=== PATIENT | female | born 1930 | race Caucasian/White ===

== ENCOUNTER 2022-02-03 09:00 | Emergency (ER) | payer MEDICARE, OTHER | END 2022-02-03 13:30 | disposition home or self-care (01) | LOC: CC.ED 09:00 | DX: S51.012A Laceration without foreign body of left elbow, initial encounter (principal); S70.02XA Contusion of left hip, initial encounter; S70.12XA Contusion of left thigh, initial encounter; Z88.1 Allergy status to other antibiotic agents; Z88.8 Allergy status to other drugs, medicaments and biological substances; W06.XXXA Fall from bed, initial encounter | CPT/HCPCS: 12002; 72192; 99283; 99284-25 ==

== ENCOUNTER 2022-06-22 02:38 | Inpatient (IN) | payer MEDICARE, OTHER ==
[2022-06-22] MEDS ORDERED: Albuterol/Ipratropium 3.0-0.5 MG/3 ML Neb Soln NEB ONE (03:05)
[2022-06-22] MEDS ORDERED: Sodium Chloride 0.9% 10 ML Syringe FLUSH PRN (03:31)
[2022-06-22 03:33] LABS: CHLORIDE,CL 104 mEq/L (98-106); SODIUM,NA 144 mEq/L (136-145)
[2022-06-22 03:35] LABS: ESTIMATED GFR 25 mL/min (>=60)
[2022-06-22] MEDS ORDERED: Acetaminophen 325 MG Tab PO PRN (04:59)
[2022-06-22] MEDS ORDERED: Ondansetron 4 MG/2 ML SDV IV PRN (04:59)
[2022-06-22] MEDS ORDERED: Ondansetron 4 MG Tab.DIS PO PRN (04:59)
[2022-06-22] MEDS ORDERED: Furosemide 40 MG/4 ML VIAL IVPUSH SCH (05:00)
[2022-06-22] MEDS: Sodium Chloride 0.9% 1,000 ML IV SCH ×2 (05:02→17:27)
[2022-06-22] MEDS: Levothyroxine 150 MCG Tab PO SCH (06:16)
[2022-06-22] MEDS: Pantoprazole 40 MG Tab.CR PO SCH (06:16)
[2022-06-22] MEDS ORDERED: Non-Formulary Medication 1 Each (Omeprazole [Omeprazole] 40 MG Capsule.Dr) PO SCH (08:00)
[2022-06-22] MEDS: Isosorbide Mononitrate 30 MG Tab.ER PO SCH (08:00)
[2022-06-22] MEDS: Sertraline 100 MG Tab PO SCH (08:00)
[2022-06-22] MEDS: Losartan 100 MG Tab PO SCH (08:00)
[2022-06-22] MEDS: amLODIPine 10 MG Tab PO SCH (08:01)
[2022-06-22] MEDS: Calcium Carbonate/Vitamin D3 1250 MG-5 MCG Tab PO SCH (08:01)
[2022-06-22] MEDS: Aspirin 81 MG Tab.EC PO SCH (08:01)
[2022-06-22] MEDS: Multivitamins with Iron/Calcium/Folic Acid/Minerals Tab PO SCH (08:01)
[2022-06-22] MEDS: Simvastatin 20 MG Tab PO SCH (08:01)
[2022-06-22] MEDS: Enoxaparin 30 MG/0.3 ML Syringe SUBCUT SCH (19:47)
[2022-06-23] MEDS: Sodium Chloride 0.9% 1,000 ML IV SCH (06:13)
[2022-06-23] MEDS: Pantoprazole 40 MG Tab.CR PO SCH (06:15)
[2022-06-23] MEDS: Levothyroxine 150 MCG Tab PO SCH (06:15)
[2022-06-23] MEDS ORDERED: Furosemide 40 MG/4 ML VIAL IVPUSH SCH (08:00)
[2022-06-23] MEDS: Sertraline 100 MG Tab PO SCH (08:08)
[2022-06-23] MEDS: Calcium Carbonate/Vitamin D3 1250 MG-5 MCG Tab PO SCH (08:08)
[2022-06-23] MEDS: Aspirin 81 MG Tab.EC PO SCH (08:08)
[2022-06-23] MEDS: Multivitamins with Iron/Calcium/Folic Acid/Minerals Tab PO SCH (08:08)
[2022-06-23] MEDS: Isosorbide Mononitrate 30 MG Tab.ER PO SCH (08:08)
[2022-06-23] MEDS: Simvastatin 20 MG Tab PO SCH (08:08)
[2022-06-23] MEDS: Losartan 100 MG Tab PO SCH (08:08)
[2022-06-23] MEDS: amLODIPine 10 MG Tab PO SCH (08:09)
[2022-06-23] MEDS: Potassium Chloride 10 MEQ Tab.ER PO SCH (13:28)
[2022-06-23] MEDS: Enoxaparin 30 MG/0.3 ML Syringe SUBCUT SCH (19:26)
[2022-06-24] MEDS: Levothyroxine 150 MCG Tab PO SCH (06:57)
[2022-06-24] MEDS: Pantoprazole 40 MG Tab.CR PO SCH (06:58)
[2022-06-24] MEDS: Isosorbide Mononitrate 30 MG Tab.ER PO SCH (07:47)
[2022-06-24] MEDS: Potassium Chloride 10 MEQ Tab.ER PO SCH (07:47)
[2022-06-24] MEDS: Calcium Carbonate/Vitamin D3 1250 MG-5 MCG Tab PO SCH (07:47)
[2022-06-24] MEDS: Losartan 100 MG Tab PO SCH (07:47)
[2022-06-24] MEDS: Sertraline 100 MG Tab PO SCH (07:47)
[2022-06-24] MEDS: Aspirin 81 MG Tab.EC PO SCH (07:47)
[2022-06-24] MEDS: amLODIPine 10 MG Tab PO SCH (07:48)
[2022-06-24] MEDS: Multivitamins with Iron/Calcium/Folic Acid/Minerals Tab PO SCH (07:48)
[2022-06-24] MEDS: Simvastatin 20 MG Tab PO SCH (07:48)
[2022-06-24] MEDS ORDERED: Furosemide 20 MG Tab PO SCH (08:00)
== END 2022-06-24 09:58 | disposition home or self-care (01) | DRG 293 ==
LOC: CC.ED 02:38 → UNDOADMIN 03:50 → CC.MS 03:50
PROVIDERS: ADMIT Nurse Practitioner Family; ATTEND Nurse Practitioner Family
DX: I13.0 Hypertensive heart and chronic kidney disease with heart failure and stage 1 through stage 4 chronic kidney disease, or unspecified chronic kidney disease (principal); E78.00 Pure hypercholesterolemia, unspecified; Z20.822 Contact with and (suspected) exposure to COVID-19; K44.9 Diaphragmatic hernia without obstruction or gangrene; I50.9 Heart failure, unspecified; R06.03 Acute respiratory distress; K21.9 Gastro-esophageal reflux disease without esophagitis; G30.9 Alzheimer's disease, unspecified; F02.80 Dementia in other diseases classified elsewhere, unspecified severity, without behavioral disturbance, psychotic disturbance, mood disturbance, and anxiety; I48.91 Unspecified atrial fibrillation; N18.9 Chronic kidney disease, unspecified; Z79.82 Long term (current) use of aspirin; Z79.899 Other long term (current) drug therapy; Z79.890 Hormone replacement therapy; I25.2 Old myocardial infarction; Z88.1 Allergy status to other antibiotic agents; Z98.49 Cataract extraction status, unspecified eye; Z88.8 Allergy status to other drugs, medicaments and biological substances
CPT/HCPCS: 36415; 51702; 71045; 80053; 81001; 83605; 83880; 84484; 85025; 85379; 86140; 87040; 87804; 93005; 93010; 94640; 97161-GP; 99223; 99233; 99239; 99285; A9270-GY; J1650; J1940; J7030; J7620-GY; U0002